=== PATIENT | male | born 1960 | race Caucasian/White ===

== ENCOUNTER 2019-01-23 13:51 | Outpatient (CLI) | payer MEDICAID ==
[~2019-01-23 13:51] MED LIST: ATEN50TA PO; ATOR40TA PO; BACL10TA PO; IBUP-1984 PO; LAMO200T PO; PALI117D IM; TRAM50TA2 PO
== END 2019-01-23 23:59 | disposition home or self-care (01) ==
LOC: CAR 13:51
DX: F25.0 Schizoaffective disorder, bipolar type (principal); R94.31 Abnormal electrocardiogram [ECG] [EKG]; F17.200 Nicotine dependence, unspecified, uncomplicated; I10 Essential (primary) hypertension; Z79.899 Other long term (current) drug therapy
CPT/HCPCS: 93005

== ENCOUNTER 2020-07-03 07:33 | Emergency (ER) | payer MEDICAID ==
[~2020-07-03] VITALS: Ht 185.4 cm; Wt 75.0 kg
[~2020-07-03 07:33] MED LIST changes: -LAMO200T PO; +LAMO200T10 PO
[2020-07-03 07:35] VITALS: BP 165/103
[2020-07-03] MEDS ORDERED: acetaminophen 325mg tablet PO ONE (07:55)
[2020-07-03] MEDS ORDERED: orphenadrine citrate 60mg/2ml inj. IM ONE (07:55)
[2020-07-03] MEDS ORDERED: LIDOcaine 5% patch TP ONE (07:55)
[2020-07-03] MEDS ORDERED: ketorolac trometh. 30mg/ml inj. IM ONE (07:55)
[2020-07-03] MEDS ORDERED: HYDROcodone/acetaminophen 5mg/325mg tablet PO ONE (07:55)
[2020-07-03] MEDS ORDERED: HYDR-3965 PO (08:07)
[2020-07-03] MEDS ORDERED: CYCL-1 PO (08:07)
[2020-07-03] MEDS ORDERED: LIDO700A32 TOP (08:07)
== END 2020-07-03 08:47 | disposition home or self-care (01) ==
LOC: ER 07:33
DX: M54.5 Low back pain (principal); G89.29 Other chronic pain; Z88.8 Allergy status to other drugs, medicaments and biological substances; Z79.899 Other long term (current) drug therapy
CPT/HCPCS: 96372; 99284; J1885; J2360

== ENCOUNTER 2021-02-03 11:32 | Outpatient (CLI) | payer MEDICAID ==
[~2021-02-03 11:32] MED LIST changes: +CYCL-1 PO; +LIDO700A32 TOP
== END 2021-02-03 23:59 | disposition home or self-care (01) ==
LOC: LAB 11:32 → RAD 23:59
DX: I51.7 Cardiomegaly (principal); I49.8 Other specified cardiac arrhythmias; F25.0 Schizoaffective disorder, bipolar type
CPT/HCPCS: 93005

== ENCOUNTER 2021-07-09 12:51 | Emergency (ER) | payer MEDICAID ==
[~2021-07-09] VITALS: Ht 208.3 cm; Wt 73.8 kg
[2021-07-09] MEDS ORDERED: ketorolac trometh. 30mg/ml inj. IM ONE (14:45)
[2021-07-09] MEDS ORDERED: MELO-102 PO (14:52)
[2021-07-09] MEDS ORDERED: CYCL-1 PO (14:52)
== END 2021-07-09 15:03 | disposition home or self-care (01) ==
LOC: ER 12:55
DX: M54.5 Low back pain (principal); G89.29 Other chronic pain; Z88.8 Allergy status to other drugs, medicaments and biological substances; Z79.899 Other long term (current) drug therapy
CPT/HCPCS: 96372; 99283; J1885

== ENCOUNTER 2022-01-31 14:53 | Emergency (ER) | payer MEDICAID ==
[~2022-01-31] VITALS: Ht 185.4 cm; Wt 78.2 kg
[~2022-01-31 14:53] MED LIST changes: +MELO-102 PO
[2022-01-31 15:12] VITALS: BP 125/74
[2022-01-31] MEDS ORDERED: acetaminophen 325mg tablet PO ONE (17:00)
[2022-01-31] MEDS ORDERED: ketorolac tromethamine 15mg/ml inj. IM ONE (17:00)
== END 2022-01-31 18:41 | disposition home or self-care (01) ==
LOC: ER 14:54
DX: M54.89 Other dorsalgia (principal); G89.29 Other chronic pain; M79.605 Pain in left leg; R20.0 Anesthesia of skin; I10 Essential (primary) hypertension; F17.200 Nicotine dependence, unspecified, uncomplicated; Z88.8 Allergy status to other drugs, medicaments and biological substances; Z79.899 Other long term (current) drug therapy
CPT/HCPCS: 72131; 96372; 99284; J1885

== ENCOUNTER 2022-03-01 03:08 | Inpatient (IN) | payer MEDICAID ==
[~2022-03-01] VITALS: Ht 185.4 cm; Wt 67.0 kg
[2022-03-01 03:46] LABS: BASOPHILS # (AUTO) 0.1 X10'3 (0-0.2); BASOPHILS % (AUTO) 0.8 % (0-1); EOSINOPHILS # (AUTO) 0.2 X10'3 (0-0.9); EOSINOPHILS % (AUTO) 1.8 % (0-6); HEMATOCRIT 35.1 % (42.0-52.0); HEMOGLOBIN 11.7 g/dl (14.0-17.9); LYMPHOCYTES # (AUTO) 1.6 X10'3 (1.1-4.8); MEAN CORPUSCULAR HEMOGLOBIN 31.1 PG (27.0-31.0); MEAN CORPUSCULAR HGB CONC 33.2 g/dL (33.0-36.5); MEAN CORPUSCULAR VOLUME 93.5 FL (78-98); MEAN PLATELET VOLUME 8.2 FL (7.4-10.4); MONOCYTES # (AUTO) 0.8 X10'3 (0-0.9); MONOCYTES % (AUTO) 6.5 % (2-12); NEUTROPHILS # (AUTO) 9.5 X10'3 (1.8-7.7); NEUTROPHILS % (AUTO) 77.9 % (42-75); PLATELET COUNT 282 X10'3 (140-440); RED BLOOD COUNT 3.76 X10'6 (4.70-6.10); RED CELL DISTRIBUTION WIDTH 14.7 % (11.5-14.5); WHITE BLOOD COUNT 12.2 X10'3 (4.5-11.0)
[2022-03-01 03:47] LABS: ALANINE AMINOTRANSFERASE 29 U/L (12-78); ALBUMIN 3.1 G/DL (3.4-5.0); ALBUMIN/GLOBULIN RATIO 0.9 (1.1-1.5); ALKALINE PHOSPHATASE 111 IU/L (46-116); ANION GAP 11 (8-16); ASPARTATE AMINO TRANSFERASE 41 U/L (10-37); BILIRUBIN,TOTAL 0.3 MG/DL (0.1-1.0); BLOOD UREA NITROGEN 12 MG/DL (7-18); BUN/CREATININE RATIO 14.3 (5.4-32.0); CALCIUM 8.8 MG/DL (8.5-10.1); CHLORIDE 107 MMOL/L (99-107); CREATININE 0.84 MG/DL (0.60-1.10); GLUCOSE 122 MG/DL (70-104); SODIUM 142 MMOL/L (135-145); TOTAL CARBON DIOXIDE 24.1 MMOL/L (24-32); TOTAL PROTEIN 6.7 G/DL (6.4-8.2); eGFR > 90 ML/MIN
[2022-03-01] MEDS ORDERED: aspirin 81mg tab.chew PO ONE (04:05)
[2022-03-01] MEDS ORDERED: heparin 10,000 units/1 ML INJ IV ONE (04:05)
[2022-03-01] MEDS ORDERED: morphine 2 MG/ML inj. syringe IV PRN ×2 (04:50)
[2022-03-01] MEDS ORDERED: acetaminophen 325mg tablet PO PRN ×2 (04:50)
[2022-03-01] MEDS ORDERED: ipratropium/albuterol 3ml nebule NEB PRN (04:50)
[2022-03-01] MEDS ORDERED: mag hydrox/Alum hydrox/simeth 30ml oral suspension PO PRN (04:50)
[2022-03-01] MEDS ORDERED: ondansetron/PF 4mg/2ml inj IV PRN (04:50)
[2022-03-01] MEDS ORDERED: HYDROcodone/acetaminophen 5mg/325mg tablet PO PRN (04:50)
[2022-03-01] MEDS ORDERED: HYDROcodone/acetaminophen 10/325mg tab PO PRN (04:50)
[2022-03-01] MEDS ORDERED: magnesium hydroxide 30ml (MOM) UD suspension PO PRN (04:50)
[2022-03-01 05:00] LABS: URINE AMPHETAMINE SCREEN NEGATIVE (Neg); URINE BARBITUATE SCREEN NEGATIVE (Neg); URINE BENZODIAZEPINES SCREEN NEGATIVE (Neg); URINE CANNABINOID SCREEN POSITIVE (Neg); URINE COCAINE SCREEN NEGATIVE (Neg); URINE METHADONE SCREEN NEGATIVE (Neg); URINE OPIATE SCREEN NEGATIVE (Neg); URINE PHENCYCLIDINE SCREEN NEGATIVE (Neg)
[2022-03-01] MEDS ORDERED: nicotine 21mg patch - 24 hr TD ONE (05:00)
[2022-03-01 05:13] LABS: APTT 27 SECONDS (22-32)
[2022-03-01] MEDS: heparin 25,000 UNIT/250ml bag 250 ML IV SCH ×2 (05:47→18:59)
--- NOTE | 2022-03-01 06:39 | NUR ---
first contact with pt. placed on bsc, pt sob with increased rr. placed on 2L nc. o2 increased from 90% to 95% on oxygen. informed on poc and status, awaiting bed assignment.
--- NOTE | 2022-03-01 07:15 | NUR ---
ambulated to/from restroom without incident.
[2022-03-01] MEDS: docusate sod 100mg capsule PO SCH ×2 (08:00→19:17)
[2022-03-01] MEDS: aspirin 81mg, enteric-coated 1 TAB TABLET.DR PO SCH (08:00)
[2022-03-01] MEDS: furosemide 40mg/4ml inj IV SCH ×2 (09:02→19:10)
[2022-03-01] MEDS ORDERED: potassium CL 10mEq/100ml bag 100 ML IV PRN (09:15)
[2022-03-01] MEDS ORDERED: potassium Cl 20 mEq SR tablet PO PRN (09:15)
[2022-03-01] MEDS ORDERED: magnesium Cl slow-release 64mg tablet PO PRN (09:15)
[2022-03-01] MEDS ORDERED: magnesium 4gm in 100ml NS 100 ML IV PRN (09:15)
[2022-03-01] MEDS ORDERED: NAPR-56 PO (09:18)
[2022-03-01] MEDS ORDERED: PREG300C PO (09:18)
[2022-03-01] MEDS ORDERED: QUET200T PO (09:18)
[2022-03-01] MEDS ORDERED: FLUO20CA39 PO (09:18)
[2022-03-01] MEDS ORDERED: ALBUTEROL IH (09:18)
[2022-03-01] MEDS ORDERED: METO-384 PO (09:18)
[2022-03-01] MEDS ORDERED: methylPREDNISolone sod succ 125mg/2ml vial IV ONE (09:20)
[2022-03-01] MEDS ORDERED: CYCL-394 PO (09:20)
[2022-03-01] MEDS: azithromycin 250mg tablet PO SCH (09:36)
[2022-03-01] MEDS: cefTRIAXone 1g/NS 100ml IVPB 100 ML IV SCH (09:37)
--- NOTE | 2022-03-01 09:38 | NUR ---
assisting RN with pt care,paged Dr Daniel to let him know med rec is complete. Also contacted [facility] to cancel procedure planned for today as pt is being admitted
--- NOTE | 2022-03-01 10:00 | NUR ---
echo at bedside.
--- NOTE | 2022-03-01 11:15 | NUR ---
report to ANANYA rider
[2022-03-01 12:03] LABS: APTT 35 SECONDS (22-32)
[2022-03-01] MEDS ORDERED: ALBU8HFA PO (12:51)
[2022-03-01] MEDS ORDERED: PALI234D IM (12:51)
[2022-03-01] MEDS ORDERED: QUET200T84 PO (12:51)
[2022-03-01 15:58] LABS: CHOL/HDL RATIO 3.6 (0.00-4.99); CHOLESTEROL 142 MG/DL (0-200); HDL CHOLESTEROL 40 MG/DL (35-60); LDL CHOLESTEROL 86 MG/DL (50-100); TRIGLYCERIDES 70 MG/DL (20-135)
[2022-03-01] MEDS: methylPREDNISolone sod succ/PF 40mg inj. IV SCH (17:39)
--- NOTE | 2022-03-01 18:00 | NUR ---
REPORT FROM ANI HARE
--- NOTE | 2022-03-01 18:27 | NUR ---
Problems reprioritized. Patient report given, questions answered & plan of care reviewed with Che HARE, patient stable at transfer of care.
[2022-03-01] MEDS: heparin 10,000 units/1 ML INJ IV PRN (19:15)
[2022-03-01] MEDS: pregabalin 25mg capsule PO SCH (19:18)
[2022-03-01] MEDS: pregabalin 75mg capsule PO SCH (19:20)
[2022-03-01] MEDS: FLUoxetine 20mg capsule PO SCH (19:26)
[2022-03-01] MEDS: K and/or MAG REPLACEMENT MC SCH (20:00)
[2022-03-01] MEDS ORDERED: metoprolol tartrate 25mg tablet PO SCH (20:00)
[2022-03-01 20:20] LABS: CREATININE 0.79 MG/DL (0.60-1.10); POTASSIUM 3.7 MMOL/L (3.5-5.1); eGFR > 90 ML/MIN
[2022-03-01] MEDS: carVEDilol 12.5mg tablet PO SCH (20:24)
[2022-03-01] MEDS ORDERED: QUETIAPINE PO SCH (21:00)
[2022-03-01] MEDS ORDERED: [UNRECOGNIZED DRUG - OTHER] PO SCH (21:00)
--- NOTE | 2022-03-01 21:55 | NUR ---
DISCUSSED LIVING SITUATION WITH PATIENT-DR. HACKETT REQUESTED SONS'S INFORMATION TO DISCUSS CASE WITH PATIENT. PATIENT IS NOT IN CONTACT WITH SON NIGHAT, WHO, ACCORDING TO SIGNIFICANT OTHER TOD, RESIDES IN [place], THEY ARE APPARENTLY ESTRANGED. PATIENT STATES HE LIVES AT THE [facility]" AND THAT "WALTER" THE CAR MECHANIC, CAN OBTAIN HIS SEROQUEL IN AM. PATIENT STATES HE DOES NOT HAVE THE NUMBER FOR NAN. i SPOKE WITH TOD, AND SHE ALSO DOES NOT HAVE THIS NUMBER. WILL PUT IN CONSULT FOR [employer]IV[employer] ENGINEERING DESIGN DRAFTSPERSON/CASE MANAGEMENT TO SEE IF WE CAN OBTAIN THIS INFORMATION. I ALSO ATTEMPTED TO FIND THIS INFORMATION IN CHART AND ONLINE, AND WAS NOT SUCCESSFUL IN FINDING THIS PERSON OR HER NUMBER. SANTIAGO HARE Addendum: 03/01/22 at 2204 by Che Infante RN PHARMACY WAS CALLED AT 2029 TO OBTAIN SEREQUEL., AND WAS TOLD BY PHARMACY THEY DO NOT HAVE IT, WILL NEED TO HAVE PATIENT OBTAIN FROM HOME. SANTIAGO
[2022-03-01 22:00] VITALS: BP 127/71
--- NOTE | 2022-03-01 22:10 | NUR ---
[facility] DOES NOT CARRY THIS TYPE OF SEROQUEL PER PHARMACIST--PATIENT SCHIZOPHRENIC, CANNOT OBTAIN MEDICATION FOR PATIENT TONIGHT. PLEASE SUBSTITUTE? PLEASE CALL KENDELL/Bharat [phone]. THANKS.
[2022-03-01] MEDS ORDERED: QUETIAPINE 200 MG TAB.SR.24H PO SCH (22:14)
[2022-03-01] MEDS: QUETIAPINE 50 MG TAB.SR.24H PO SCH (22:45)
[2022-03-02] VITALS (13 sets, daily range): BP systolic 102–125; BP diastolic 73–88
[2022-03-02] MEDS: methylPREDNISolone sod succ/PF 40mg inj. IV SCH ×4 (00:13→23:28)
[2022-03-02 01:12] LABS: BASOPHILS % (AUTO) 0.5 % (0-1); EOSINOPHILS % (AUTO) 0 % (0-6); HEMOGLOBIN 11.2 g/dl (14.0-17.9); LYMPHOCYTES # (AUTO) 0.8 X10'3 (1.1-4.8); LYMPHOCYTES % (AUTO) 13.1 % (21-51); MEAN CORPUSCULAR HEMOGLOBIN 31.4 PG (27.0-31.0); MEAN CORPUSCULAR HGB CONC 34.1 g/dL (33.0-36.5); MEAN CORPUSCULAR VOLUME 92.2 FL (78-98); MEAN PLATELET VOLUME 8.2 FL (7.4-10.4); MONOCYTES # (AUTO) 0.1 X10'3 (0-0.9); MONOCYTES % (AUTO) 1.6 % (2-12); NEUTROPHILS % (AUTO) 84.8 % (42-75); PLATELET COUNT 243 X10'3 (140-440); RED BLOOD COUNT 3.58 X10'6 (4.70-6.10); RED CELL DISTRIBUTION WIDTH 14.6 % (11.5-14.5); WHITE BLOOD COUNT 5.9 X10'3 (4.5-11.0)
[2022-03-02 01:32] LABS: ALBUMIN 2.9 G/DL (3.4-5.0); ANION GAP 11 (8-16); BLOOD UREA NITROGEN 13 MG/DL (7-18); BUN/CREATININE RATIO 17.6 (5.4-32.0); CHLORIDE 105 MMOL/L (99-107); CHOL/HDL RATIO 3.3 (0.00-4.99); CHOLESTEROL 144 MG/DL (0-200); CREATININE 0.74 MG/DL (0.60-1.10); GLUCOSE 126 MG/DL (70-104); HDL CHOLESTEROL 44 MG/DL (35-60); LDL CHOLESTEROL 90 MG/DL (50-100); MAGNESIUM 1.7 MG/DL (1.5-2.4); PHOSPHORUS 2.9 MG/DL (2.3-4.5); POTASSIUM 3.2 MMOL/L (3.5-5.1); SODIUM 140 MMOL/L (135-145); TOTAL CARBON DIOXIDE 23.9 MMOL/L (24-32); TRIGLYCERIDES 79 MG/DL (20-135); eGFR > 90 ML/MIN
[2022-03-02] MEDS: heparin 10,000 units/1 ML INJ IV PRN (01:43)
[2022-03-02] MEDS: potassium Cl 20 mEq SR tablet PO PRN ×3 (02:13→13:37)
[2022-03-02] MEDS: heparin 25,000 UNIT/250ml bag 250 ML IV SCH (05:05)
--- NOTE | 2022-03-02 05:51 | NUR ---
REPORT GIVEN TO Neftali JORDAN RN
--- NOTE | 2022-03-02 06:30 | NUR ---
To previous note I did not receive report; Cheryl, B is free resource not doing direct patient care. Daya SHANE Addendum: 03/02/22 at 0631 by Che Infante RN REPORT GIVEN TO YAIMA HARE
[2022-03-02] MEDS: K and/or MAG REPLACEMENT MC SCH ×2 (08:00→20:00)
[2022-03-02] MEDS ORDERED: losartan 25mg tablet PO SCH (08:00)
[2022-03-02] MEDS ORDERED: metoprolol succinate 25mg (24-HOUR) SR. Tablet PO SCH (08:00)
[2022-03-02] MEDS: furosemide 40mg/4ml inj IV SCH ×2 (09:00→20:24)
[2022-03-02] MEDS: pregabalin 75mg capsule PO SCH ×2 (09:01→20:34)
[2022-03-02] MEDS: carVEDilol 12.5mg tablet PO SCH ×2 (09:02→20:30)
[2022-03-02] MEDS: docusate sod 100mg capsule PO SCH ×2 (09:02→20:26)
[2022-03-02] MEDS: azithromycin 250mg tablet PO SCH (09:02)
[2022-03-02] MEDS: pregabalin 25mg capsule PO SCH (09:02)
[2022-03-02] MEDS: aspirin 81mg, enteric-coated 1 TAB TABLET.DR PO SCH (09:02)
[2022-03-02] MEDS: spironolactone 25 MG tablet PO SCH (09:04)
[2022-03-02] MEDS: cefTRIAXone 1g/NS 100ml IVPB 100 ML IV SCH (09:20)
--- NOTE | 2022-03-02 09:36 | NUR ---
Malnutrition Consult: Pt admit DX CHF exacerbation and hypoxemia reports 14-23 pound wt loss per EMR. Pt has normal strength, no edema/wounds, PO 100% most recent heart healthy meals yesterday, and pending scaled wt this admit. Pt has no scaled wt hx though current reported wt 77.27kg and prior July 2021 ER reported wt 73.8kg. Pt lacks minimum malnutrition criteria at this time. Will monitor for further malnutrition criteria and nutrition intervention needs this admit. Addendum: 03/02/22 at [address] Amended: Links added.
--- NOTE | 2022-03-02 11:23 | NUR ---
PAGER ID: [phone] MESSAGE: [phone] Jozef Wilkinson- Unable to get a doppler pulse on left foot. Left foot cooler and pt c/o numbness. Discoloration on left great toe. Shania [id number]
[2022-03-02] MEDS: losartan 50mg tablet PO SCH (13:03)
--- NOTE | 2022-03-02 15:03 | NUR ---
PRESSURE ULCER EDUCATION: DEFINITION: A pressure ulcer is an area of skin that breaks down when you stay in one position too long. The constant pressure against the skin reduces the blood flow to that area and the affected tissue dies. CAUSES: "Being bedridden or in a wheelchair "Fragile skin "Having a chronic condition, such as diabetes or vascular disease "Inability to move certain parts of your body without assistance "Older age "Incontinence of urine or stool SYMPTOMS: "A reddened area that DOES NOT turn white when pressed on - this can be the beginning of a pressure ulcer "A blister, deep sore or a crater - these can be advanced pressure ulcers FIRST AID: "Relieve the pressure on this area "Keep the area clean and dry "Call your primary doctor if you see any of the above symptoms "DO NOT massage the area "DO NOT use a donut shaped or ring shaped pillow- these actually interfere with the blood flow and cause complications PREVENTION: "Check for pressure ulcers everyday "Change position at least every two hours to relieve pressure "Use items that help relieve pressure- pillows, sheepskin, foam padding, and powders. "Keep skin clean and dry "Eat healthy well balanced meals "Exercise daily IF YOU SEE ANY OF THESE SYMPTOMS WHILE IN THE HOSPITAL - TELL YOUR NURSE IMMEDIATELY. IF YOU SEE ANY OF THESE SYMPTOMS WHILE AT HOME OR HAVE ANY QUESTIONS OR CONCERNS ABOUT PRESSURE ULCERS - CALL YOUR PRIMARY DOCTOR IMMEDIATELY. Addendum: 03/02/22 at 1503 by Annabella Sharif RN Amended: Links added.
[2022-03-02] MEDS ORDERED: nitroGLYCERIN-Tridil 50MG/D5W 250 ML IV ONE (15:08)
[2022-03-02] MEDS ORDERED: iohexol 350 MG/ML 50ML vial IV ONE ×2 (15:09→16:46)
[2022-03-02] MEDS ORDERED: heparin 1,000unit/ml 10ml vial 10 ML ONE (15:09)
[2022-03-02] MEDS ORDERED: midazolam 1 mg/ML 2ml injection ONE (15:09)
[2022-03-02] MEDS ORDERED: LIDOcaine 1% (10mg/ml)w/preservative inj. 20ml MDV ONE (15:09)
[2022-03-02] MEDS ORDERED: fentaNYL/PF 50MCG/1 ML 2ML syringe ONE (15:09)
[2022-03-02] MEDS ORDERED: iohexol 350MG/ML 100ml bottle IV ONE ×2 (15:09→16:12)
[2022-03-02] MEDS ORDERED: verapamil 2.5 mg/ml inj IV ONE (15:09)
[2022-03-02 16:11] LABS: ISTAT HGB ART 13.3 g/dl (14.0-18.0); ISTAT Hct ART 39 %PCV (42-52); ISTAT O2 SATURATION ARTERIAL 94 % (95-98); ISTAT SOURCE ART
--- NOTE | 2022-03-02 17:00 | NUR ---
Problems reprioritized. Patient report given, questions answered & plan of care reviewed with Che HARE.
--- NOTE | 2022-03-02 18:18 | NUR ---
Patient in room PCU 3012. I have received report from YAIMA HARE and had the opportunity to ask questions and assume patient care.
[2022-03-02] MEDS: FLUoxetine 20mg capsule PO SCH (20:31)
[2022-03-02] MEDS: QUETIAPINE 50 MG TAB.SR.24H PO SCH (20:33)
[2022-03-02] MEDS: atorvastatin 20mg tablet PO SCH (20:34)
[2022-03-03 02:00] VITALS: BP 103/70
--- NOTE | 2022-03-03 05:49 | NUR ---
Problems reprioritized. Patient report given WITH YAIMA HARE questions answered & plan of care reviewed with .
[2022-03-03 06:00] VITALS: BP 109/76
[2022-03-03] MEDS: furosemide 40mg/4ml inj IV SCH ×2 (07:30→19:08)
[2022-03-03] MEDS: pregabalin 75mg capsule PO SCH ×2 (07:30→19:08)
[2022-03-03] MEDS: aspirin 81mg, enteric-coated 1 TAB TABLET.DR PO SCH (07:30)
[2022-03-03] MEDS: docusate sod 100mg capsule PO SCH ×2 (07:30→19:08)
[2022-03-03] MEDS: methylPREDNISolone sod succ/PF 40mg inj. IV SCH ×2 (07:30→17:02)
[2022-03-03] MEDS: carVEDilol 12.5mg tablet PO SCH ×2 (07:30→19:08)
[2022-03-03] MEDS: azithromycin 250mg tablet PO SCH (07:31)
[2022-03-03] MEDS: cefTRIAXone 1g/NS 100ml IVPB 100 ML IV SCH (07:31)
[2022-03-03 07:45] LABS: BASOPHILS % (AUTO) 0.3 % (0-1); EOSINOPHILS % (AUTO) 0 % (0-6); LYMPHOCYTES # (AUTO) 1.4 X10'3 (1.1-4.8); LYMPHOCYTES % (AUTO) 10.8 % (21-51); MEAN CORPUSCULAR HGB CONC 34.2 g/dL (33.0-36.5); MEAN CORPUSCULAR VOLUME 93.5 FL (78-98); MEAN PLATELET VOLUME 8.8 FL (7.4-10.4); MONOCYTES # (AUTO) 0.8 X10'3 (0-0.9); MONOCYTES % (AUTO) 6.1 % (2-12); NEUTROPHILS # (AUTO) 10.3 X10'3 (1.8-7.7); NEUTROPHILS % (AUTO) 82.8 % (42-75); PLATELET COUNT 277 X10'3 (140-440); RED BLOOD COUNT 4.39 X10'6 (4.70-6.10); RED CELL DISTRIBUTION WIDTH 14.9 % (11.5-14.5); WHITE BLOOD COUNT 12.5 X10'3 (4.5-11.0)
[2022-03-03 07:57] LABS: ALANINE AMINOTRANSFERASE 29 U/L (12-78); ALBUMIN 3.3 G/DL (3.4-5.0); ALBUMIN/GLOBULIN RATIO 0.8 (1.1-1.5); ALKALINE PHOSPHATASE 112 IU/L (46-116); ANION GAP 13 (8-16); ASPARTATE AMINO TRANSFERASE 39 U/L (10-37); BILIRUBIN,TOTAL 0.4 MG/DL (0.1-1.0); BLOOD UREA NITROGEN 29 MG/DL (7-18); BUN/CREATININE RATIO 36.7 (5.4-32.0); CALCIUM 9.4 MG/DL (8.5-10.1); CHLORIDE 104 MMOL/L (99-107); CREATININE 0.79 MG/DL (0.60-1.10); GLUCOSE 110 MG/DL (70-104); SODIUM 139 MMOL/L (135-145); TOTAL CARBON DIOXIDE 22.3 MMOL/L (24-32); TOTAL PROTEIN 7.3 G/DL (6.4-8.2); eGFR > 90 ML/MIN
[2022-03-03] MEDS: K and/or MAG REPLACEMENT MC SCH ×2 (08:00→20:00)
[2022-03-03] MEDS ORDERED: enoxaparin 30mg/0.3ml syringe SUBCUT SCH (08:00)
[2022-03-03 08:12] LABS: CHOL/HDL RATIO 4.3 (0.00-4.99); CHOLESTEROL 172 MG/DL (0-200); FERRITIN 80 NG/ML (26-388); HDL CHOLESTEROL 40 MG/DL (35-60); LDL CHOLESTEROL 103 MG/DL (50-100); MAGNESIUM 1.9 MG/DL (1.5-2.4); PHOSPHORUS 3.7 MG/DL (2.3-4.5); TRIGLYCERIDES 133 MG/DL (20-135)
[2022-03-03 09:13] LABS: % IRON SATURATION 13 % (11-46); IRON 40 UG/DL (53-167); TOTAL IRON BINDING CAPACITY 315 UG/DL (259-388)
[2022-03-03] MEDS: spironolactone 25 MG tablet PO SCH (09:47)
[2022-03-03 11:00] VITALS: BP 107/80
[2022-03-03] MEDS: losartan 50mg tablet PO SCH (12:41)
[2022-03-03 15:00] VITALS: BP 98/59
--- NOTE | 2022-03-03 18:29 | NUR ---
Problems reprioritized. Patient report given, questions answered & plan of care reviewed with Cj HARE.
[2022-03-03 18:30] VITALS: BP 114/79
[2022-03-03] MEDS: apixaban 5mg tablet PO SCH (19:08)
[2022-03-03] MEDS: atorvastatin 20mg tablet PO SCH (21:22)
[2022-03-03] MEDS: FLUoxetine 20mg capsule PO SCH (21:22)
[2022-03-03] MEDS: QUETIAPINE 50 MG TAB.SR.24H PO SCH (21:22)
[2022-03-03 22:00] VITALS: BP 96/60
[2022-03-04 02:00] VITALS: BP 107/68
--- NOTE | 2022-03-04 06:37 | NUR ---
Problems reprioritized. Patient report given, questions answered & plan of care reviewed with Luli HARE.
[2022-03-04 07:00] VITALS: BP 109/86
--- NOTE | 2022-03-04 07:28 | NUR ---
Patient in room PCU 3012. I have received report from Cj HARE and had the opportunity to ask questions and assume patient care.
[2022-03-04] MEDS: apixaban 5mg tablet PO SCH (07:41)
[2022-03-04] MEDS: aspirin 81mg, enteric-coated 1 TAB TABLET.DR PO SCH (07:41)
[2022-03-04] MEDS: pregabalin 75mg capsule PO SCH (07:41)
[2022-03-04] MEDS: docusate sod 100mg capsule PO SCH (07:41)
[2022-03-04] MEDS: cefTRIAXone 1g/NS 100ml IVPB 100 ML IV SCH (07:41)
[2022-03-04] MEDS: azithromycin 250mg tablet PO SCH (07:42)
[2022-03-04] MEDS: spironolactone 25 MG tablet PO SCH (07:47)
[2022-03-04] MEDS: furosemide 40mg/4ml inj IV SCH (07:47)
[2022-03-04] MEDS: carVEDilol 12.5mg tablet PO SCH (07:47)
[2022-03-04 07:48] LABS: BASOPHILS % (AUTO) 0.4 % (0-1); EOSINOPHILS % (AUTO) 0.1 % (0-6); HEMATOCRIT 44.4 % (42.0-52.0); LYMPHOCYTES # (AUTO) 2.1 X10'3 (1.1-4.8); LYMPHOCYTES % (AUTO) 17.7 % (21-51); MEAN CORPUSCULAR HEMOGLOBIN 31.4 PG (27.0-31.0); MEAN CORPUSCULAR HGB CONC 33.8 g/dL (33.0-36.5); MEAN CORPUSCULAR VOLUME 92.8 FL (78-98); MEAN PLATELET VOLUME 8.7 FL (7.4-10.4); MONOCYTES # (AUTO) 1.2 X10'3 (0-0.9); NEUTROPHILS # (AUTO) 8.6 X10'3 (1.8-7.7); NEUTROPHILS % (AUTO) 71.8 % (42-75); PLATELET COUNT 262 X10'3 (140-440); RED BLOOD COUNT 4.79 X10'6 (4.70-6.10); RED CELL DISTRIBUTION WIDTH 14.9 % (11.5-14.5)
[2022-03-04] MEDS: K and/or MAG REPLACEMENT MC SCH (08:00)
[2022-03-04] MEDS ORDERED: predniSONE 20 mg tablet PO SCH (08:00)
[2022-03-04 08:09] LABS: ALBUMIN 3.4 G/DL (3.4-5.0); ANION GAP 12 (8-16); BLOOD UREA NITROGEN 41 MG/DL (7-18); BUN/CREATININE RATIO 56.2 (5.4-32.0); CALCIUM 9.3 MG/DL (8.5-10.1); CHLORIDE 104 MMOL/L (99-107); CREATININE 0.73 MG/DL (0.60-1.10); GLUCOSE 107 MG/DL (70-104); MAGNESIUM 2.3 MG/DL (1.5-2.4); PHOSPHORUS 3.6 MG/DL (2.3-4.5); POTASSIUM 3.8 MMOL/L (3.5-5.1); SODIUM 139 MMOL/L (135-145); TOTAL CARBON DIOXIDE 23.5 MMOL/L (24-32); eGFR > 90 ML/MIN
[2022-03-04] MEDS ORDERED: ASPI-1071 PO (10:00)
[2022-03-04] MEDS ORDERED: LOSA50TA64 PO (10:00)
[2022-03-04] MEDS ORDERED: CARV-50 PO (10:00)
[2022-03-04] MEDS ORDERED: AZI25OT PO (10:00)
[2022-03-04] MEDS ORDERED: PRED20TA PO (10:00)
[2022-03-04] MEDS ORDERED: ATOR20TA66 PO (10:00)
[2022-03-04] MEDS ORDERED: NICO1PAT41 TOP (10:15)
[2022-03-04 11:00] VITALS: BP 106/79
[2022-03-04] MEDS ORDERED: SPIR25TA PO (11:48)
[2022-03-04] MEDS ORDERED: APIX5TAB3 PO (11:48)
[2022-03-04] MEDS: losartan 50mg tablet PO SCH (12:00)
--- NOTE | 2022-03-04 12:58 | NUR ---
patient has no c/o pain or discomfort. seen by Dr Lr and DR stewart is for discharge. All DC instructions given to patient PIV removed in tact. Caab called for patient. patient DC home via cab in stable condition 1300hrs.
[2022-03-05 06:26] LABS: ISTAT Hct MIX 38 %PCV (42-52); ISTAT O2 SATURATION MIX VENOUS 72 % (60-80); ISTAT SOURCE VEN
== END 2022-03-04 12:00 | disposition home or self-care (01) | DRG 190 ==
LOC: ER 03:09 → ED HOLD 04:53 → PCU 3S 16:58
PROVIDERS: ADMIT Internal Medicine; ATTEND Family Medicine
PROC: 4A023N8 Measurement of Cardiac Sampling and Pressure, Bilateral, Percutaneous Approach (ICD-10-PCS; principal; 2022-03-02)
PROC: B2111ZZ Fluoroscopy of Multiple Coronary Arteries using Low Osmolar Contrast (ICD-10-PCS; 2022-03-02)
PROC: B2151ZZ Fluoroscopy of Left Heart using Low Osmolar Contrast (ICD-10-PCS; 2022-03-02)
PROC: 02JA3ZZ Inspection of Heart, Percutaneous Approach (ICD-10-PCS; 2022-03-02)
DX: I21.4 Non-ST elevation (NSTEMI) myocardial infarction (principal); I50.23 Acute on chronic systolic (congestive) heart failure; I74.3 Embolism and thrombosis of arteries of the lower extremities; J18.9 Pneumonia, unspecified organism; I42.0 Dilated cardiomyopathy; I11.0 Hypertensive heart disease with heart failure; I42.8 Other cardiomyopathies; F25.9 Schizoaffective disorder, unspecified; J44.0 Chronic obstructive pulmonary disease with (acute) lower respiratory infection; I73.9 Peripheral vascular disease, unspecified; G89.29 Other chronic pain; I25.5 Ischemic cardiomyopathy; M54.9 Dorsalgia, unspecified; M79.672 Pain in left foot; F17.210 Nicotine dependence, cigarettes, uncomplicated; Z60.2 Problems related to living alone; D64.9 Anemia, unspecified; E78.5 Hyperlipidemia, unspecified; E87.6 Hypokalemia; F12.90 Cannabis use, unspecified, uncomplicated; F31.9 Bipolar disorder, unspecified; I25.10 Atherosclerotic heart disease of native coronary artery without angina pectoris; R09.02 Hypoxemia; Z79.899 Other long term (current) drug therapy; I25.2 Old myocardial infarction; Z88.8 Allergy status to other drugs, medicaments and biological substances; Z71.6 Tobacco abuse counseling
CPT/HCPCS: 36415; 71045; 76937; 80048; 80053; 80061; 80305; 82565; 82607; 82728; 82803; 83540; 83550; 83735; 83880; 84100; 84132; 84145; 84484; 85014; 85025; 85347; 85610; 85730; 87081; 93005; 93306; 93460; 93922; 93926; 94640; 94760; 99152; 99153; 99285; A4620; A5120; C1751; C1769; C1894; C9607; G0378; J0696; J1644; J1650; J1940; J2250; J2920; J2930; J3010; J3490; J7512; Q9967